=== PATIENT | female | born 1960 | race Caucasian/White ===

== ENCOUNTER 2016-08-18 13:42 | Day surgery (SDC) | payer MEDICARE, MEDICAID ==
[~2016-08-18] VITALS: Ht 162.6 cm; Wt 114.0 kg
[~2016-08-18 13:42] MED LIST: ACET325T51 PO; ASPI-973 PO; ATOR20TA PO; CHOL200047 PO; CINA60TA PO; CLOP75TA3 PO; DEXL60CA5 PO; KEPP250T PO; LACT1CAP65 PO; Lactated Ringer's 1,000 ML IV ONE; METO100T3 PO; MOME17SP NS; NITR0.4T SL; OXYC5TAB72 PO; VALS80TA2 PO; VIT1TABL83 PO; [UNRECOGNIZED DRUG - CODE] PO
[2016-08-18] MEDS ORDERED: fentaNYL-PF 50 mCg/mL 2 mL Inj ONE (13:43)
--- NOTE | 2016-08-18 14:05 | PCM.HPANE ---
Patient Data Surgeon Admitting Provider: Attending Provider:August Carrillo MD Primary Care Physician:Alice Scott DO Other Provider:Jong Garcia Anesthesia Reason for Visit Anemia Ht/WT & BMI Body Mass Index Allergies Coded Allergies: amoxicillin trihydrate (Verified Allergy, Severe, bloody diarrhea, 08/15/16 ) potassium clavulanate (Verified Allergy, Severe, bloody diarrhea, 08/15/16) cephalexin (Verified Allergy, Intermediate, bloody diarrhea, 08/15/16) iron (Verified Allergy, Intermediate, Diarrhea, 08/15/16) nickel (Verified Allergy, Unknown, itching, 08/15/16) tetracycline (Verified Allergy, Unknown, 08/15/16) TAPE (Verified Adverse Reaction, Severe, Rash, 08/15/16) bandaides and adhesive tape - peels skin Paper tape ok benazepril HCl (Verified Adverse Reaction, Severe, dizziness, 08/15/16) diphenhydramine HCl (Verified Adverse Reaction, Severe, 08/15/16) restless leg syndrome iodine (Verified Adverse Reaction, Severe, itching, 08/15/16) Sulfa (Sulfonamide Antibiotics) (Verified Adverse Reaction, Unknown, Hullucinations, 08/15/16) Pt was 18 month old amoxicillin (Verified Adverse Reaction, Unknown, 08/15/16) metoclopramide HCl (Verified Adverse Reaction, Unknown, vomit, 08/15/16) Uncoded Allergies: chloraPrep (Adverse Reaction, Severe, 08/16/13) itching Past Anesthesia History Anesthesia History: Positive for:: Abnormal Airway, Difficult Intubation, Denies:: Anesthesia Reactions, Fam Anesthesia Reaction, Fam Malignant Hypertherm, Malignant Hyperthermia Diabetes History Hx Diabetes?: No MRSA MRSA: No Medications Blood Thinner: Aspirin, Plavix Reported Medications Insulin Glargine (Lantus U100 Solostar Insulin Pen)100 Unit/1 Ml Insuln.pen14 Unit SUBQ MORNING #1 PENINJ Ref 0 08/18/16 Vit B Comp/C/FA/Iron/Vit E (Vitamin B Complex Tablet)1 Each Tablet1 Each PO 08/14/15 Cholecalciferol (Vitamin D3) (Vitamin D3)2,000 Unit Capsule2,000 Unit PO 04/06/15 Acetaminophen 325 Mg Nxytoa011 Mg PO Q4H PRN For Fever Ref 0 04/06/15 Cinacalcet HCl (Sensipar)60 Mg Pbcjqg28 Mg PO DAILY #30 TABLET Ref 0 04/06/15 Ropinirole (Requip)5 Mg Tablet5 Mg PO TID Ref 0 04/06/15 Lactobacillus Acidophilus (Probiotic)1 Each Capsule1 Each PO 04/06/15 oxyCODONE 5 Mg Tablet5 Mg PO Q4H PRN For Pain Ref 0 04/06/15 Nitroglycerin SL (Nitrostat)0.4 Mg Tab.subl0.4 Mg SL Q5MIN PRN For Chest Pain # 1 BOTTLE 04/06/15 Mometasone Furoate (Nasonex)17 Gm Staples.pump1 Staples NS DAILY #1 PKG Ref 0 04/06/15 Levetiracetam (Keppra)250 Mg Osoxoe264 Mg PO 04/06/15 Dexlansoprazole ER (Dexilant)60 Mg Muldpgs91 Mg PO DAILY 30 Days Ref 0 04/06/15 Atorvastatin (Lipitor)20 Mg Blkjfs65 Mg PO DAILY Ref 0 04/06/15 Aspirin 81 Mg Neuetc52 Mg PO DAILY Ref 0 04/06/15 Discontinued Reported Medications Valsartan (Diovan)80 Mg Uqnsks81 Mg PO DAILY 30 Days Ref 0 08/15/16 Clopidogrel Bisulfate (Plavix)75 Mg Bynyvo65 Mg PO DAILY 30 Days Ref 0 05/08/15 Metoprolol Tartrate 100 Mg Bctulp379 Mg PO BID 30 Days Ref 0 04/06/15 Valsartan (Diovan)80 Mg Wxwcml24 Mg PO DAILY 30 Days Ref 0 04/06/15 History History of ENT Problems?: Yes HEENT History: Positive for:: Abnormal Airway Difficult Intubation Denies:: Dysphagia Hearing Problem Hx of Heart Problems?: Yes Cardiovascular History: Positive for:: Atrial Fibrillation Hypertension Denies:: Chest Pain Pacemaker Hx of Respiratory Problem?: Yes Respiratory History: Positive for:: Pneumonia (most recent 2013) Neurological History: Positive for:: Dizziness Denies:: CVA Dementia Hx of GI Problems?: Yes Gastrointestinal History: Positive for:: Cirrhosis Gastroesphageal Reflux (Controlled with Medication) Rectal Bleeding (intermittent) Denies:: Diverticulitis Hiatal Hernia Hx of Problems?: Yes Genitourinary History: Positive for:: HX of Hemodialysis (MWF) Other Pertinent History: dialysed today Female Hx: Denies:: Currently (POST MENOPAUSE) Musculoskeletal History: Denies:: Joint Replacement Hx of Psycho/Social Problems?: Yes Psycho Social History: Positive for:: Anxiety Hx Depression Hx Surgeries?: Yes (Crainotomy 03/15 - STENTS, HERNIA REPAIR, NEPHRECTOMY) Hx Any Other Health Problems?: Yes Other History: Positive for:: Hospitalization Denies:: Cancer Endocrine Disease Thyroid Disease History Blood Transfusions: Positive for:: Blood Transfuse Reaction Blood Transfusions Hx Diabetes: No Hx Alcohol Use: No Smoking Status: Never Smoker Stop/Bang Treated for Sleep Apnea?: Yes Do You Have a CPAP Machine?: Yes MAYLIN Category 4 OutPt Procedure: Yes Risk Assessment Category Category 1A: Patient has history of documented sleep apnea, and HAS NOT received any narcotic, sedative or anesthesia administration during this stay. Category 1B: Patient has history of documented sleep apnea, and HAS received any narcotic , sedative or anesthesia administration during this stay Category 2: Patient has SUSPECTED Obstructive Sleep Apnea, and HAS received any narcotic , sedative or anesthesia administration during this stay. Category 3: Patient has SUSPECTED Obstructive Sleep Apnea and HAS NOT received narcotic, sedative or anesthesia administration during this stay. Category 4: Outpatient in Procedural Areas with known sleep apnea or who screen positive for High Risk via the STOP/BANG questionnaire. Exam Exam General Appearance: Alert, Oriented X3, Cooperative, No Acute Distress HEENT/AIRWAY: MP 2 Lungs: Clear to Auscultation, Normal Air Movement Heart: Exam Unremarkable, Regular Rate/Rhythm, No Murmurs/Rubs/Gallops Plan Impression Patient chart reviewed, patient interviewed and anesthestic plan with risks, benefits, and alternatives discussed, and informed consent obtained. NPO Status: greater than 8 hours ASA Physical Status: ASA3 Severe Disease Anesthetic Plan: MAC Bene/Risks/Altern/Consents: Yes HP Complete Prior to Induction: Yes Vineet Whitt MD Aug 18, 2016 14:05
[2016-08-18] MEDS ORDERED: INSU100I13 SUBQ (14:08)
[2016-08-18] MEDS ORDERED: 0.9% Sodium Chloride 1,000 ML ONE (14:20)
[2016-08-18 14:24] VITALS: BP 114/65; PULSE 81; RESP 16; O2SAT 97
[2016-08-18] MEDS ORDERED: 0.9% Sodium Chloride 1,000 ML IV SCH (14:30)
[2016-08-18] MEDS ORDERED: Lactated Ringer's 1,000 ML IV SCH (14:58)
--- NOTE | 2016-08-18 14:59 | PCM.ANEP2 ---
Post Anesthesia Evaluation ASA/CMS Post Anesthesia VS in Patient's Normal Range?: Yes Resp Stable; Airway Patent?: Yes CV Function & Hydration Stable: Yes Mental Status Recovered?: Yes Pain control Satisfactory?: Yes N/V Control Satisfactory?: Yes Vineet Whitt MD Aug 18, 2016 14:59
--- NOTE | 2016-08-18 14:59 | PCM.ANEP1 ---
Post Anesthesia Phase 1 PACU Phase 1 Assessment Vital Signs Vital Signs Date Time Temp Pulse Resp B/P Pulse Ox O2 Delivery O2 Flow Rate FiO2 08/18/16 14:24 37.6 81 16 114/65 97 Room Air Anesthetic Administered: MAC Level of Alertness: Awake, talking NORTON's with Equal Strength: Yes Pain: No Nausea or Vomiting: No Oxygen Delivery: Nasal Cannula Lungs: Clear to Auscultation, Normal Air Movement Vineet Whitt MD Aug 18, 2016 14:59
[2016-08-18 15:00] VITALS: BP 111/46; PULSE 86; RESP 14; O2SAT 93
[2016-08-18] MEDS ORDERED: Ondansetron 2 mg/mL 2 mL Inj IVPUSH PRN (15:00)
[2016-08-18 15:14] VITALS: BP 106/42; PULSE 77; RESP 12; O2SAT 93
--- NOTE | 2016-08-18 22:28 | ENDO ---
[address] [address] ENDOSCOPY PROCEDURE PATIENT: JOSE YOO : 1960 MR#: [id number] ADMIT: 08/18/2016 JOB ID: [id number] DATE OF PROCEDURE: 08/18/2016 PRIMARY PROVIDER: Alice Scott DO. PROCEDURE: Esophagogastroduodenoscopy with biopsies. INDICATIONS: A 55-year-old female with multiple medical comorbidities, chronic anemia and intermittent GI bleeding. She has recently dropped her blood count subacutely and experienced intermittent black stools. She is set for transfusion tomorrow. The black stools have dissipated and returned to normal. She has a history of GAVE and repeat upper endoscopy is pursued. EQUIPMENT: [id number]. SEDATION: Monitored anesthesia as provided by Vineet Whitt MD. COMPLICATIONS: None identified. PROCEDURE INFORMATION: After the risks and benefits were explained, written and verbal informed consent was obtained. The patient was brought into the endoscopy suite and placed into the left lateral decubitus position. Sedation was achieved using the above-stated medications with the addition of oxygen via nasal cannula. The scope was introduced into the mouth through the bite block and advanced under direct visualization through the oropharynx, esophagus, stomach, and onto the second portion the duodenum. The scope was slowly withdrawn to carefully examine the mucosa for any defects or lesions. Retroflexed views were accomplished in the stomach. The stomach was decompressed. The scope was removed from the patient who tolerated the procedure well. FINDINGS: 1. Esophagus: The squamocolumnar junction correlated with the top of the gastric folds. No acute erosive changes. No strictures. No mass lesions. No varices. GEJ was at 41 cm from the incisors. 2. Stomach: The patient had a minimal amount of retained food debris easily suctioned with the endoscope. No sign of any recent bleeding. I did not see any mass lesions, nor any ulceration. However, patient had a very nodular and erythematous appearing antral region. As to the history of GAVE, I did not see any superficial vascularity that warranted APC, at least none to suggest a recent source of significant blood loss. We biopsied one of the nodules for histopathologic analysis. There was no evidence of any outlet obstruction. I could easily advance the scope into the duodenum. 3. Duodenum: The nodularity seen in the antrum appeared to extend into the duodenal region and just into the second portion. We therefore biopsied the region of nodularity in D2 as well. No significant vascular pathology throughout to account for the recent melena and anemia. ENDOSCOPIC DIAGNOSES: 1. Nodular antral gastropathy. 2. Nodular duodenopathy. RECOMMENDATIONS: 1. Await histopathology. 2. Proceed with blood transfusion tomorrow. 3. Follow along clinically. If there is a recurrent spell of melena and dropping blood count once again, I think repeat capsule endoscopy would be in order.
--- NOTE | 2016-08-20 14:08 | PATH ---
SURGICAL PATHOLOGY Attending Physician:Paulina Perez CASE STATUS: Signed Out PATIENT NAME: JOSE OYO PID: [id number] : 1960 DATE COLLECTED:08/18/2016 00:00 SPECIMEN: 1: Duodenum, Biopsy 2: Stomach, Antrum, Biopsy CLINICAL HISTORY: A: DUODENAL NODULE BIOPSY B: ANTRUM NODULE BIOPSY FINAL DIAGNOSIS: 1.DUODENAL NODULE BIOPSY: CHANGES OF CHRONIC DUODENITIS WITH PROMINENT FOVEOLAR METAPLASIA. Negative for evidence of celiac disease. Negative for dysplasia and malignancy. 2.ANTRUM NODULE BIOPSY: MILD CHRONIC ACTIVE GASTRITIS INVOLVING ANTRAL MUCOSA WITH ASSOCIATED PROMINENT FOVEOLAR HYPERPLASIA. Immunohistochemistry for Helicobacter pylori pending, to be reported by addendum. Negative for intestinal metaplasia. Negative for dysplasia and malignancy. ICD10 code K29.70 GROSS DESCRIPTION: The specimens are received in formalin, labeled with the patient's name, and sublabeled as the following: (1) duodenal nodule Bx' s; (2) antrum nodule Bx's. (1) The specimen consists of a martinez-white glistening round rubbery nodule (0.2 cm). Section code: (1A) intact nodule. Specimen entirely submitted. (2) The specimen consists of a fragment of fernandez-white translucent rubbery tissue (0.3 x 0.2 x 0.1 cm). Section code: (2A) tissue. Specimen entirely submitted. 08/19/16 JM MICRO DESCRIPTION: See diagnosis. ICD-9 CODES: CPT CODES: 1: 94010 2: 59232, 06510 PROCEDURE/ADDENDA: Immunohistochemistry SPI Interpretation {Not Entered} Results-Comments B.ANTRUM NODULE, BIOPSY: Negative for Helicobacter pylori by immunohistochemistry. This test was developed and its performance characteristics determined by [facility]. It has not been cleared or approved by the [place]. Food and Drug Administration. The FDA has determined that such clearance or approval is not necessary. This test is used for clinical purposes. It should not be regarded as investigational or for research. Electronically Signed Out August Bennett MD Electronically Signed Out August Bennett MD [facility] [address] [place] [id number] Technical component performed at [facility], [address], [place], [address]
== END 2016-08-18 23:59 | disposition home or self-care (01) ==
LOC: END 13:42
PROVIDERS: ATTEND Internal Medicine Gastroenterology
DX: K29.80 Duodenitis without bleeding (principal); K29.50 Unspecified chronic gastritis without bleeding; I25.10 Atherosclerotic heart disease of native coronary artery without angina pectoris; I25.2 Old myocardial infarction; D64.9 Anemia, unspecified; K74.60 Unspecified cirrhosis of liver; K31.89 Other diseases of stomach and duodenum; Z95.5 Presence of coronary angioplasty implant and graft; Z79.02 Long term (current) use of antithrombotics/antiplatelets; Z79.82 Long term (current) use of aspirin
CPT/HCPCS: 43239; J2250; J7030